=== PATIENT | female | born 1960 | race Caucasian/White ===

== ENCOUNTER → 2016-11-23 | Outpatient (CLI) | payer OTHER ==
--- NOTE | 2016-11-23 10:04 | MA ---
Screening Digital Mammogram Clinical Indications: Routine screening. Technique: Standard cephalocaudal and mediolateral oblique projections are obtained. This examinati on is processed by the [employer] computer aided detection system. Comparison: October 2015, May 2014 and April 2012 Breast density: B; There are scattered fibroglandular densities. Findings: CAD was reviewed. No suspicious findings are identified. Impression: Negative mammogram. . BI-RADS 1. Recommendation: Routine screening is recommended in one year. [facility] will send a result letter to the patient. Negative mammography should not preclude additional workup of a clinically suspicious finding. The patient's information is entered into a reminder system with a target due date for her next mammo gram.
== END ==
LOC: BMCIMAGING 08:42
DX: Z12.31 Encounter for screening mammogram for malignant neoplasm of breast (principal)
CPT/HCPCS: G0202

== ENCOUNTER 2017-04-22 15:19 | Emergency (ER) | payer OTHER ==
--- NOTE | 2017-04-22 15:26 | EDPHY ---
H & P HPI/ROS: HPI CHIEF COMPLAINT: Altered mental status, confusion, head injury HISTORY OF PRESENT ILLNESS: This patient is a 57-year-old female, denies any significant medical history, presents to the emergency room from work where she had a unwitnessed syncopal episode. Patient presents emergency room by ambulance, is confused. She does have nasal trauma. With dry epistaxis present. Patient tells me she does not remember the events at work tonight. Her friend at bedside who states she knows her very well as never had a seizure or syncopal episode. She does report to me over the past few hours she has been tired. Upon arrival here in emergency room I did Greet the patient. She still seems slow to respond and confused. She does not know what happened. She denies any medical history. She is alert and orient x3. Past Medical History: Denies medical history Past Surgical History: Denies surgical history Social History: Denies daily use of drugs alcohol tobacco products Family History: Noncontributory ROS REVIEW OF SYSTEMS: A comprehensive 10 point review of systems is otherwise negative aside from elements mentioned in the history of present illness. Exam Constitutional appears well, nontoxic, triage nursing summary reviewed, vital signs reviewed, awake/alert. Eyes normal conjunctivae and sclera, EOMI, PERRLA. HENT normal inspection, atraumatic, moist mucus membranes, no epistaxis, neck supple/ no meningismus, no raccoon eyes. Respiratory clear to auscultation bilaterally, normal breath sounds, no respiratory distress, no wheezing. Cardiovascular rate normal, regular rhythm, no murmur, no edema, distal pulses normal. Gastrointestinal soft, non-tender, no rebound, no guarding, normal bowel sounds, no distension, no pulsatile mass. Genitourinary no CVA tenderness. Musculoskeletal no midline vertebral tenderness, full range of motion, no calf swelling, no tenderness of extremities, no meningismus, good pulses, neurovascularly intact. Skin pink, warm, & dry, no rash, skin atraumatic. Neurologic confused, somewhat slow to respond, awake, alert and oriented x 3, AAOx3, moves all 4 extremities equally, motor intact, sensory intact, CN II-XII intact, normal cerebellar, normal vision, normal speech. Psychiatric normal mood/affect. Heme/Lymph/Immune no lymphadenopathy. 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 Unclear etiology of syncope versus seizure at this time. Re-evaluation: 1603: Rather 2 large bottles of vodka found her purse. Will add on alcohol level. EKG interpretation by me on record in [email or web address] system. Impression time of EKG 1603, sinus rhythm rate of 80. No prolonged intervals. No signs of cardiac arrhythmia. No acute ischemic changes appreciated. 1634: It is noted this patient's blood alcohol is 364. She denies drinking alcohol prior to arrival to the emergency room. She did arrive by ambulance from her workplace after syncopal episode. It turns out that she is highly intoxicated with alcohol. She does tell me that she is an alcoholic she has an AA. She tells me she does not drink daily. She is unclear exactly why she drank so much alcohol at work. Here in the emergency room she has a negative troponin, a nontraumatic CT head and neck, and nonischemic EKG. I feel that the most likely cause of syncope is acute alcohol intoxication. There friends at bedside that will take her home. I have asked if she would like to speak with case management about alcohol Resource she is decline. She ambulated well throughout the emergency room no significant ataxia. Is somewhat sober and safe for discharge with a friend. CT scan of the head without IV contrast and cervical spine without IV contrast, no bleed, no stroke, extra-axial calcified mass left frontal lobe consistent with a meningioma.. Dr. Torres. I viewed the images myself on the PACS system. Source: Patient, EMS Constitutional: Initial Vital Signs Temperature (C) 36.8 C 04/22/17 15:20 Heart Rate 76 04/22/17 15:20 Respiratory Rate 19 04/22/17 15:20 Blood Pressure 117/74 04/22/17 15:20 O2 Sat (%) 94 04/22/17 15:20 Allergies/Adverse Reactions: No Known Allergies Allergy (Unverified 04/22/17 15:36) Home Medications: Medication Instructions Recorded Prozac 10 MG (*) 04/22/17 Medical Decision Making - Diagnostics Imaging Results: Imaging Impressions Cervical Spine CT 04/22/17 15:35 Impression: No evidence for acute intracranial abnormality. Incidental 8 mm partially calcified benign hemangioma in the posterior lateral left frontal fossa. CT Cervical Spine Without Contrast History: Fall. Trauma. Technique: 1.5 mm helical images were obtained the cervical spine without contrast. Multiplanar reformation was performed. Radiation dose reduction technique was utilized. Findings: No evidence for fracture or subluxation. There is disk height narrowing and osteophytosis at C5-C6. Mild facet arthropathy is seen on the right at C2-C3 and on the left at C3-C4. Uncovertebral joint hypertrophy and spurring is seen at C5-C6 with minimal bilateral neural foraminal narrowing. No other significant spinal canal or neural foraminal encroachment. Impression: Mild multilevel degenerative disk and degenerative joint disease of the cervical spine. No evidence for acute fracture. Results called and discussed with Turner Perez MD on 04/22/2017 at 1615 hours. Chest X-Ray 04/22/17 15:35 Impression: Negative portable chest. Head CT 04/22/17 15:35 Impression: No evidence for acute intracranial abnormality. Incidental 8 mm partially calcified benign hemangioma in the posterior lateral left frontal fossa. CT Cervical Spine Without Contrast History: Fall. Trauma. Technique: 1.5 mm helical images were obtained the cervical spine without contrast. Multiplanar reformation was performed. Radiation dose reduction technique was utilized. Findings: No evidence for fracture or subluxation. There is disk height narrowing and osteophytosis at C5-C6. Mild facet arthropathy is seen on the right at C2-C3 and on the left at C3-C4. Uncovertebral joint hypertrophy and spurring is seen at C5-C6 with minimal bilateral neural foraminal narrowing. No other significant spinal canal or neural foraminal encroachment. Impression: Mild multilevel degenerative disk and degenerative joint disease of the cervical spine. No evidence for acute fracture. Results called and discussed with Turner Perez MD on 04/22/2017 at 1615 hours. - Data Points Laboratory Results: Laboratory Results 04/22/17 15:40 04/22/17 15:40 04/22/17 04/22/17 04/22/17 16:15 15:40 15:40 WBC RBC Hgb Hct MCV MCH MCHC RDW Plt Count MPV Neut % (Auto) Lymph % (Auto) Bollinger % (Auto) Eos % (Auto) Baso % (Auto) Nucleat RBC Rel Count Absolute Neuts (auto) Absolute Lymphs (auto) Absolute Monos (auto) Absolute Eos (auto) Absolute Basos (auto) Absolute Nucleated RBC Immature Gran % Immature Gran # PT 12.9 SEC SEC (12.0-15.0) INR 0.98 (0.83-1.16) Sodium 144 mEq/L mEq/L (134-144) Potassium 4.1 mEq/L mEq/L (3.5-5.2) Chloride 107 mEq/L mEq/L (97-110) Carbon Dioxide 22 mEq/l mEq/l (22-31) Anion Gap 15 mEq/L mEq/L (8-16) BUN 12 mg/dL mg/dL (7-23) Creatinine 0.9 mg/dL mg/dL (0.6-1.0) Estimated GFR > 60 Glucose 82 mg/dL mg/dL (70-100) Calcium 8.8 mg/dL mg/dL (8.5-10.4) Troponin I < 0.012 ng/mL ng/mL (0-0.034) Specimen Hemolysis Urine Opiates Screen NEGATIVE (NEGATIVE) Urine Barbiturates NEGATIVE (NEGATIVE) Ur Phencyclidine Scrn NEGATIVE (NEGATIVE) Ur Amphetamine Screen NEGATIVE (NEGATIVE) U Benzodiazepines Scrn NEGATIVE (NEGATIVE) Urine Cocaine Screen NEGATIVE (NEGATIVE) U Marijuana (THC) Screen NEGATIVE (NEGATIVE) Ethyl Alcohol 364 mg/dL H mg/dL (0-10) 04/22/17 04/22/17 15:40 15:00 WBC 6.20 10^3/uL 10^3/uL (3.80-9.50) RBC 4.69 10^6/uL 10^6/uL (4.18-5.33) Hgb 14.1 g/dL g/dL (12.6-16.3) Hct 42.7 % % (38.0-47.0) MCV 91.0 fL fL (81.5-99.8) MCH 30.1 pg pg (27.9-34.1) MCHC 33.0 g/dL g/dL (32.4-36.7) RDW 13.3 % % (11.5-15.2) Plt Count 240 10^3/uL 10^3/uL (150-400) MPV 9.3 fL fL (8.7-11.7) Neut % (Auto) 73.5 % % (39.3-74.2) Lymph % (Auto) 19.5 % % (15.0-45.0) Bollinger % (Auto) 5.2 % % (4.5-13.0) Eos % (Auto) 1.0 % % (0.6-7.6) Baso % (Auto) 0.3 % % (0.3-1.7) Nucleat RBC Rel Count 0.0 % % (0.0-0.2) Absolute Neuts (auto) 4.56 10^3/uL 10^3/uL (1.70-6.50) Absolute Lymphs (auto) 1.21 10^3/uL 10^3/uL (1.00-3.00) Absolute Monos (auto) 0.32 10^3/uL 10^3/uL (0.30-0.80) Absolute Eos (auto) 0.06 10^3/uL 10^3/uL (0.03-0.40) Absolute Basos (auto) 0.02 10^3/uL 10^3/uL (0.02-0.10) Absolute Nucleated RBC 0.00 10^3/uL 10^3/uL (0-0.01) Immature Gran % 0.5 % % (0.0-1.1) Immature Gran # 0.03 10^3/uL 10^3/uL (0.00-0.10) PT INR Sodium Potassium Chloride Carbon Dioxide Anion Gap BUN Creatinine Estimated GFR Glucose Calcium Troponin I Specimen Hemolysis Cancelled Urine Opiates Screen Urine Barbiturates Ur Phencyclidine Scrn Ur Amphetamine Screen U Benzodiazepines Scrn Urine Cocaine Screen U Marijuana (THC) Screen Ethyl Alcohol Cancelled Medications Given: Discontinued Medications Sodium Chloride (Ns) 1,000 mls @ 0 mls/hr IV ONCE ONE; Wide Open PRN Reason: Protocol Stop: 04/22/17 15:35 Last Admin: 04/22/17 16:14 Dose: 1,000 mls Departure - Departure Disposition: Home, Routine, Self-Care Clinical Impression: Alcohol intoxication Qualifiers: Complication of substance-induced condition: uncomplicated Qualified Code(s): F10.920 - Alcohol use, unspecified with intoxication, uncomplicated Condition: Good Instructions: Alcohol Intoxication (ED) Referrals: Patient,NotPresent [Unknown] - As per Instructions
[2017-04-22] MEDS ORDERED: NS 1,000 ML IV ONE (15:34)
[2017-04-22 15:50] LABS: % IMMATURE GRANULYOCYTES 0.5 % (0.0-1.1); ABSOLUTE IMMATURE GRANULOCYTES 0.03 10^3/uL (0.00-0.10); ADD DIFF? NO; ADD MORPH? NO; ADD SCAN? NO; ATYPICAL LYMPHOCYTE FLAG 10 (0-99); FRAGMENT RBC FLAG 0 (0-99); HEMATOCRIT 42.7 % (38.0-47.0); HEMOGLOBIN 14.1 g/dL (12.6-16.3); LEFT SHIFT FLG 10 (0-99); LIPEMIA HEMOLYSIS FLAG 80 (0-99); MEAN CELL HEMOGLOBIN 30.1 pg (27.9-34.1); MEAN PLATELET VOLUME 9.3 fL (8.7-11.7); PLATELET CLUMPS FLAG 0 (0-99); PLATELET COUNT 240 10^3/uL (150-400); RED BLOOD CELL COUNT 4.69 10^6/uL (4.18-5.33); RED CELL DISTRIBUTION WIDTH 13.3 % (11.5-15.2)
[2017-04-22 16:00] LABS: ANION GAP 15 mEq/L (8-16); CALCIUM 8.8 mg/dL (8.5-10.4); CARBON DIOXIDE 22 mEq/l (22-31); CHLORIDE 107 mEq/L (97-110); CREATININE 0.9 mg/dL (0.6-1.0); GLOMERULAR FILTRATION RATE > 60; GLUCOSE 82 mg/dL (70-100); INR 0.98 (0.83-1.16); POTASSIUM 4.1 mEq/L (3.5-5.2); PROTIME(PATIENT) 12.9 SEC (12.0-15.0); SODIUM 144 mEq/L (134-144)
--- NOTE | 2017-04-22 16:05 | CPEKG ---
Heart Rate: 80 RR Interval: 750 P-R Interval: 164 QRSD Interval: 84 QT Interval: 404 QTC Interval: 466 P Constable: 74 QRS Constable: 70 T Wave Constable: 60 EKG Severity - NORMAL ECG - EKG Impression: SINUS RHYTHM Electronically Signed By: Turner Perez 22-Apr-2017 23:18:32
[2017-04-22 16:11] LABS: TROPONIN I < 0.012 ng/mL (0-0.034)
[2017-04-22 16:23] LABS: ETHANOL SERUM 364 mg/dL (0-10)
[2017-04-22 16:54] VITALS: BP 116/75; PULSE 90; RESP 15; TEMP 98.8; O2SAT 93
== END 2017-04-22 16:54 | disposition home or self-care (01) ==
LOC: EDUNIT#
DX: F10.920 Alcohol use, unspecified with intoxication, uncomplicated (principal)
CPT/HCPCS: 80305; G0480

== ENCOUNTER → 2017-06-15 | Outpatient (CLI) | payer OTHER | LOC: BMCIMAGING 11:21 | PROVIDERS: ATTEND Internal Medicine | DX: Z13.820 Encounter for screening for osteoporosis (principal); M85.80 Other specified disorders of bone density and structure, unspecified site ==

== ENCOUNTER → 2018-08-24 | Outpatient (CLI) | payer BC | LOC: BRMIMAGING 08:03 | PROVIDERS: ATTEND Internal Medicine | DX: Z12.31 Encounter for screening mammogram for malignant neoplasm of breast (principal) ==